=== PATIENT | female | born 1990 | race Caucasian/White ===

== ENCOUNTER 2018-08-10 04:25 | Inpatient (IN) | payer MEDICAID ==
[~2018-08-10] VITALS: Ht 154.9 cm; Wt 122.3 kg
[2018-08-10] MEDS ORDERED: D5%-LACTATED RINGERS 1,000 ML IV SCH (04:55)
[2018-08-10] MEDS ORDERED: OXYTOCIN 30U/ 0.9% NaCL 500ML 500 ML IV PRN (04:55)
[2018-08-10] MEDS ORDERED: OXYTOCIN 30U/ 0.9% NaCL 500ML 500 ML IV ONE (04:55)
[2018-08-10] MEDS ORDERED: ONDANSETRON 2MG/ML, 2ML IVPush PRN ×2 (05:00→19:30)
[2018-08-10] MEDS ORDERED: OXYTOCIN 30U/ 0.9% NaCL 500ML 500 ML ONE (05:00)
[2018-08-10] MEDS ORDERED: SODIUM CITRATE/CITRIC ACID 30 ML UDC PO PRN (05:00)
[2018-08-10] MEDS ORDERED: METOCLOPRAMIDE 5 MG/ML, 2ML IVPush PRN (05:00)
[2018-08-10] MEDS ORDERED: FENTANYL PF 100 MCG/2ML IV PRN (05:00)
[2018-08-10] MEDS ORDERED: LIDOCAINE/PF 1%, 30ML ONE (05:00)
[2018-08-10] MEDS ORDERED: CALCIUM CARBONATE 500 MG TAB.CHEW PO PRN (05:00)
[2018-08-10] MEDS ORDERED: MISOPROSTOL 200 MCG TABLET ONE (05:00)
[2018-08-10] MEDS ORDERED: NEWBORN KIT ONE (05:00)
[2018-08-10] MEDS: LACTATED RINGERS 1,000 ML IV SCH ×4 (05:15→21:47)
[2018-08-10] MEDS ORDERED: RANI150T23 PO (05:24)
[2018-08-10] MEDS ORDERED: PREN-59 PO (05:24)
[2018-08-10 05:25] VITALS: BP 122/76
[2018-08-10] MEDS ORDERED: PLEASE ENTER ALLERGIES MC SCH (05:30)
[2018-08-10] MEDS: VANCOMYCIN PMX 1GM/200ML 200 ML IVPB SCH ×2 (05:38→17:34)
[2018-08-10 06:02] LABS: BASOPHILS # (AUTO) 0.05 x10^3/uL (0-0.1); BASOPHILS % (AUTO) 0 % (0-1); EOSINOPHILS # (AUTO) 0.12 x10^3/uL (0-0.4); EOSINOPHILS % (AUTO) 1 % (1-7); LYMPHOCYTES # (AUTO) 2.03 x10^3/uL (1-3.4); LYMPHOCYTES % (AUTO) 15 % (22-44); MD NO; MEAN CORPUSCULAR HEMOGLOBIN 30.9 pg (27.0-34.8); MEAN CORPUSCULAR VOLUME 90.7 fL (80-100); MEAN PLATELET VOLUME 8.7 fL (7.4-10.4); MONOCYTES # (AUTO) 0.73 x10^3/uL (0.2-0.8); MONOCYTES % (AUTO) 5 % (2-9); NEUTROPHILS # (AUTO) 10.76 x10^3/uL (1.8-6.8); NEUTROPHILS % (AUTO) 79 % (42-75); PLATELET COUNT 265 x10^3/uL (130-400); RED BLOOD COUNT 4.03 x10^6/uL (3.82-5.3); RED CELL DISTRIBUTION WIDTH 15.6 % (9.6-15.2)
[2018-08-10] MEDS ORDERED: CALCIUM CARBONATE 500 MG TAB.CHEW ONE (06:06)
[2018-08-10] MEDS ORDERED: FENTANYL PF 100 MCG/2ML ONE ×2 (06:38→08:24)
[2018-08-10] MEDS: FENTANYL PF 100 MCG/2ML IVPush PRN ×2 (06:40→08:25)
[2018-08-10] MEDS ORDERED: FENTANYL/BUPIV./NS/PF 250 ML EPIDCONT SCH ×2 (06:46→19:14)
[2018-08-10] MEDS ORDERED: BUPIVACAINE 0.25% ONE (10:35)
[2018-08-10] MEDS ORDERED: ONDANSETRON 2MG/ML, 2ML ONE (11:05)
[2018-08-10] MEDS ORDERED: EPHEDRINE 50 MG/ML, 1ML IVPush PRN (19:30)
[2018-08-10] MEDS ORDERED: LACTATED RINGERS 1,000 ML IVBOLUS PRN (19:30)
[2018-08-10] MEDS ORDERED: DIPHENHYDRAMINE 50 MG/ML, 1ML IVPush PRN (19:30)
[2018-08-10] MEDS ORDERED: NALOXONE 0.4 MG/ML, 1ML IVPush PRN (19:30)
[2018-08-11] MEDS ORDERED: METOCLOPRAMIDE 5 MG/ML, 2ML ONE (02:26)
[2018-08-11] MEDS ORDERED: SODIUM CITRATE/CITRIC ACID 30 ML UDC ONE (02:26)
[2018-08-11] MEDS ORDERED: CLINDAMYCIN PMX 900MG/50ML 50 ML ONE (02:49)
[2018-08-11] MEDS: LACTATED RINGERS 1,000 ML IV SCH ×6 (02:50→18:50)
[2018-08-11] MEDS: OXYTOCIN 30U/ 0.9% NaCL 500ML 500 ML IV SCH ×3 (02:50→22:50)
[2018-08-11] MEDS ORDERED: OXYTOCIN 10 UNITS/ML, 1ML ONE (02:58)
[2018-08-11] MEDS ORDERED: KETOROLAC 30 MG/1 ML ONE ×2 (02:58→02:59)
[2018-08-11] MEDS ORDERED: ONDANSETRON 2MG/ML, 2ML ONE (02:58)
[2018-08-11] MEDS ORDERED: DEXAMETHASONE 4 MG/ML, 1ML ONE (02:58)
[2018-08-11] MEDS ORDERED: morphine SULFATE/PF 0.5 MG/ML, 10ML ONE (02:59)
[2018-08-11] MEDS ORDERED: ROPIvacaine/PF 0.2%, 20 ML ONE (02:59)
[2018-08-11] MEDS ORDERED: MISOPROSTOL 200 MCG TABLET PR PRN (03:00)
[2018-08-11] MEDS ORDERED: METHYLERGONOVINE 0.2 MG/ML IM PRN (03:00)
[2018-08-11] MEDS ORDERED: OXYcodone/APAP 5/325MG TABLET PO PRN (03:00)
[2018-08-11] MEDS ORDERED: METOCLOPRAMIDE 5 MG/ML, 2ML IV PRN (03:00)
[2018-08-11] MEDS ORDERED: MEPERIDINE/PF 50 MG/ML IVPush PRN (03:00)
[2018-08-11] MEDS ORDERED: BISACODYL 10 MG SUPP PR PRN (03:00)
[2018-08-11] MEDS ORDERED: CARBOPROST TROMETHAMINE 250 MCG/ML, 1ML IM PRN (03:00)
[2018-08-11] MEDS ORDERED: DIPH,PERTUSS(ACELL),TET VAC/PF NC IM-VACC PRN (03:00)
[2018-08-11] MEDS ORDERED: MEASLES,MUMPS&RUBELLA VACC/PF 0.5 ML SQ-VACC PRN (03:00)
[2018-08-11] MEDS ORDERED: ONDANSETRON 2MG/ML, 2ML IV PRN (03:00)
[2018-08-11] MEDS ORDERED: SIMETHICONE 80 MG CHEW TAB PO PRN (03:00)
[2018-08-11] MEDS ORDERED: GLYCERIN ADULT SUPP PR PRN (03:00)
[2018-08-11] MEDS ORDERED: ACETAMINOPHEN 325 MG TABLET PO PRN ×2 (03:00)
[2018-08-11] MEDS ORDERED: CALCIUM CARBONATE 500 MG TAB.CHEW PO PRN (03:00)
[2018-08-11] MEDS: KETOROLAC 30 MG/1 ML IV SCH ×4 (03:30→21:45)
[2018-08-11 06:05] VITALS: BP 104/65
[2018-08-11 08:05] VITALS: BP 111/70
[2018-08-11] MEDS: PRENATAL VIT/IRON/FA 1 EACH TABLET PO SCH (08:19)
[2018-08-11] MEDS: DOCUSATE 100 MG CAPSULE PO PRN ×2 (08:19→21:44)
[2018-08-11 11:19] LABS: MEAN CORPUSCULAR HEMOGLOBIN 30.7 pg (27.0-34.8); MEAN CORPUSCULAR HGB CONC 33.5 g/dL (32.4-35.8); MEAN CORPUSCULAR VOLUME 91.6 fL (80-100); MEAN PLATELET VOLUME 8.9 fL (7.4-10.4); PLATELET COUNT 265 x10^3/uL (130-400); RED BLOOD COUNT 3.81 x10^6/uL (3.82-5.3)
[2018-08-11 11:35] LABS: MD YES
[2018-08-11 11:37] LABS: <PLATELET ESTIMATE> ADEQUATE; <PLT MORPHOLOGY> NORMAL PLT MORPH; <RBC MORPHOLOGY> NORMAL; BANDS%(MANUAL) 3 % (0-7); LYMPH#(MANUAL) 1.39 x10^3/uL (1-3.4); LYMPHS% (MANUAL) 6 % (22-44); MONOS#(MANUAL) 0.46 x10^3/uL (0.3-2.7); MONOS% (MANUAL) 2 % (2-9); SEG#(MANUAL) 20.65 x10^3/uL (1.8-6.8); SEGS% (MANUAL) 89 % (42-75)
[2018-08-11 12:00] VITALS: BP 104/70
[2018-08-11 16:00] VITALS: BP 101/68
[2018-08-11 19:35] VITALS: BP 107/67
[2018-08-12] VITALS: BP 98/58
[2018-08-12] MEDS: LACTATED RINGERS 1,000 ML IV SCH ×2 (01:05→02:50)
[2018-08-12] MEDS: KETOROLAC 30 MG/1 ML IV SCH ×3 (03:26→09:30)
[2018-08-12] MEDS: PRENATAL VIT/IRON/FA 1 EACH TABLET PO SCH (08:55)
[2018-08-12] MEDS: DOCUSATE 100 MG CAPSULE PO PRN (08:55)
[2018-08-12] MEDS: IBUPROFEN 600 MG TABLET PO PRN ×2 (09:02→16:55)
[2018-08-12] MEDS: OXYcodone/APAP 5/325MG TABLET PO PRN (12:32)
[2018-08-12 19:53] VITALS: BP 110/72
[2018-08-13] MEDS: IBUPROFEN 600 MG TABLET PO PRN ×4 (00:41→22:45)
[2018-08-13] MEDS: DOCUSATE 100 MG CAPSULE PO PRN ×3 (00:42→22:44)
[2018-08-13] MEDS: OXYcodone/APAP 5/325MG TABLET PO PRN ×5 (00:42→22:45)
[2018-08-13 08:15] VITALS: BP 111/73
[2018-08-13] MEDS: PRENATAL VIT/IRON/FA 1 EACH TABLET PO SCH (08:17)
[2018-08-13] MEDS ORDERED: IBUP-1222 PO (08:47)
[2018-08-13] MEDS ORDERED: OXYC-302 PO (08:49)
[2018-08-14 01:16] VITALS: BP 110/70
[2018-08-14] MEDS: IBUPROFEN 600 MG TABLET PO PRN ×2 (06:34→14:46)
[2018-08-14 07:10] VITALS: BP 115/74
[2018-08-14] MEDS: PRENATAL VIT/IRON/FA 1 EACH TABLET PO SCH (09:11)
[2018-08-14] MEDS: DOCUSATE 100 MG CAPSULE PO PRN (09:11)
[2018-08-14] MEDS: OXYcodone/APAP 5/325MG TABLET PO PRN (14:46)
== END 2018-08-14 18:00 | disposition home or self-care (01) | DRG 788 ==
LOC: LDOP 04:25 → LDIP 04:58 → 2NW 08-11 05:35
PROVIDERS: ADMIT Obstetrics & Gynecology; ATTEND Obstetrics & Gynecology
PROC: 10D00Z1 Extraction of Products of Conception, Low, Open Approach (ICD-10-PCS; principal; 2018-08-11)
DX: O62.1 Secondary uterine inertia (principal); O40.3XX0 Polyhydramnios, third trimester, not applicable or unspecified; O99.214 Obesity complicating childbirth; O99.52 Diseases of the respiratory system complicating childbirth; F32.9 Major depressive disorder, single episode, unspecified; O99.344 Other mental disorders complicating childbirth; J45.909 Unspecified asthma, uncomplicated; E66.9 Obesity, unspecified; O99.824 Streptococcus B carrier state complicating childbirth; Z3A.39 39 weeks gestation of pregnancy; Z37.0 Single live birth; Z87.891 Personal history of nicotine dependence; Z88.1 Allergy status to other antibiotic agents; Z88.2 Allergy status to sulfonamides; Z88.8 Allergy status to other drugs, medicaments and biological substances; O99.62 Diseases of the digestive system complicating childbirth; K21.9 Gastro-esophageal reflux disease without esophagitis
CPT/HCPCS: 36415; 82803; 85025; 86850; 86900; 99285; G0378; J1100; J1885; J2274; J2405; J2795; J3010; J3370; J2590; J7120